=== PATIENT | female | born 1970 | race Caucasian/White ===

== ENCOUNTER 2019-11-29 14:22 | Outpatient (CLI) | payer OTHER, SELFPAY ==
--- NOTE | 2019-11-29 14:29 | MM_ITS ---
WS: [id number] BILATERAL SCREENING DIGITAL MAMMOGRAM WITH CAD HISTORY: SCREENING COMPARISON: 09/08/2018, 07/22/2017 and 2014 Bilateral CC and MLO views submitted. Computer aided detection analyzed. Breast composition: The breasts are heterogeneously dense, which may obscure small masses. No suspici ous masses, microcalcifications or architectural distortion. Stable overall parenchymal pattern. No s uspicious mass or calcifications. MM/[place] [id number] IMPRESSION: BI-RADS: 2-Benign FOLLOW UP: 1 Year Follow-up
== END 2019-11-29 14:23 | disposition home or self-care (01) ==
PROVIDERS: Family Provider Family Medicine; Visit Provider Family Medicine
DX: Z12.31 Encounter for screening mammogram for malignant neoplasm of breast (principal)
CPT/HCPCS: 77067

== ENCOUNTER 2020-12-04 09:15 | Outpatient (CLI) | payer OTHER, SELFPAY ==
--- NOTE | 2020-12-04 09:18 | MM_ITS ---
WS: [id number] SCREENING DIGITAL MAMMOGRAM WITH CAD HISTORY: SCREENING COMPARISON: None available. Bilateral CC and MLO views submitted. Computer aided detection analyzed. Breast composition: The breasts are heterogeneously dense, which may obscure small masses. Partially obscured mass measuring 1 cm in the medial inferior RIGHT breast near 5:00. No suspicious masses or c alcifications otherwise. MM/[place] [id number] IMPRESSION: BI-RADS: 0-Incomplete: Need additional imaging evaluation FOLLOW UP: Need Additional Imaging RIGHT breast: Spot compression views (CC and MLO). True ML. Ultrasound to follo w if abnormality persists.
== END 2020-12-04 09:16 | disposition home or self-care (01) ==
LOC: RADSHAW 09:17
PROVIDERS: PCP Family Medicine; Visit Provider Family Medicine
DX: Z12.31 Encounter for screening mammogram for malignant neoplasm of breast (principal); N63.14 Unspecified lump in the right breast, lower inner quadrant
CPT/HCPCS: 77067

== ENCOUNTER 2020-12-21 10:27 | Outpatient (CLI) | payer OTHER, SELFPAY ==
--- NOTE | 2020-12-21 10:30 | US_ITS ---
WS: [id number] ADDITIONAL VIEWS RIGHT BREAST RIGHT breast ultrasound, limited HISTORY: ABNORMAL/INCONCLUSIVE FINDING ON IMAGING OF BREAST COMPARISON: 12/04/2020, 11/29/2019, 09/08/2018 Compression views right CC and MLO projection. True ML also submitted. Asymmetry persists in the 5:00 axis of the RIGHT breast but is very poorly defined. Asymmetry measure s about 11 mm in the anterior breast. RIGHT breast ultrasound. At 5:00, 2 cm from the nipple is a hypoechoic mass with a few scattered areas of increased foci and t here is also increased vascularity. This corresponds in shape and appearance to the mammographic abno rmality. This nodule measures 0.9 x 1.2 x 0.7 cm. US/US breast RT limited* [id number] IMPRESSION: BI-RADS: 4-Suspicious Finding-Biopsy Should Be Considered FOLLOW-UP: Biopsy Recommended Ultrasound-guided biopsy recommended of the RIGHT breast mass at 5:00.
== END 2020-12-21 10:28 | disposition home or self-care (01) ==
LOC: RADSHAW 10:28
PROVIDERS: PCP Family Medicine; Visit Provider Family Medicine
DX: R92.8 Other abnormal and inconclusive findings on diagnostic imaging of breast (principal); N63.14 Unspecified lump in the right breast, lower inner quadrant
CPT/HCPCS: 76642; 77065

== ENCOUNTER 2021-01-02 12:26 | Outpatient (CLI) | payer OTHER, SELFPAY ==
--- NOTE | 2021-01-02 12:32 | US_ITS ---
WS: [id number] ULTRASOUND-GUIDED RIGHT BREAST BIOPSY CLINICAL INFORMATION: LUMP RIGHT BREAST COMPARISON: None. FINDINGS: The procedure including risks, benefits, and complications were discussed with the patient who agreed to proceed. Using sterile technique patient was prepped and draped in the usual sterile fashion. Aft er 1% lidocaine utilizing real-time ultrasound guidance 5 14-gauge cores were obtained of the right b reast lesion at the 5 o'clock position. Subsequently a titanium clip was placed in the biopsy cavity. No immediate complications. Pathology demonstrates A. Breast, right at 5:00, ultrasound-guided biopsy: -Fibrocystic changes with stromal sclerosis and focal sclerosing adenosis. -Focal fibro-adenomatoid change identified. -No malignancy identified. -Additional ancillary studies have been performed as a precautionary measure and will be added as an addendum. US/[place] [id number] IMPRESSION: 1. Uncomplicated ultrasound-guided right breast biopsy. 2. THE PATHOLOGY DEMONSTRATES A. Breast, right at 5:00, ultrasound-guided biopsy: -Fibrocystic changes with stromal sclerosis and focal sclerosing adenosis. -Focal fibro-adenomatoid change identified. -No malignancy identified. -Additional ancillary studies have been performed as a precautionary measure an d will be added as an addendum. RECOMMEND 6 MONTH FOLLOW-UP RIGHT DIAGNOSTIC MAMMOGRAPHY AND ULTRASOUND. BI-RADS: 2-Benign FOLLOW UP: 6 Month Follow-up
== END 2021-01-02 12:27 | disposition home or self-care (01) ==
PROVIDERS: PCP Family Medicine; Visit Provider Family Medicine
DX: N63.14 Unspecified lump in the right breast, lower inner quadrant (principal); N60.21 Fibroadenosis of right breast
CPT/HCPCS: 19083; 88305

== ENCOUNTER 2022-10-21 13:13 | Outpatient (CLI) | payer OTHER, SELFPAY ==
--- NOTE | 2022-10-21 13:24 | MM_ITS ---
WS: [id number] BILATERAL 3D TOMOSYNTHESIS DIGITAL DIAGNOSTIC MAMMOGRAPHY WITH CAD CLINICAL INFORMATION: 6M F/U HISTORY: Six-month follow-up COMPARISON: 2020 TECHNIQUE: Bilateral CC, MLO, and ML views. FINDINGS: Scattered fibroglandular densities bilaterally. Biopsy clip RIGHT breast. Breast parenchyma appears u nchanged. Ultrasound RIGHT breast is described below. ULTRASOUND BREAST RIGHT TECHNIQUE: Ultrasound right breast focused area of concern. CLINICAL INFORMATION: 6M F/U FINDINGS: Ultrasound RIGHT breast at the 5:00 position 2 cm from the nipple. Again seen is the hypoechoic ovoid nodule today measuring 0.7 0.5 x 1.1 cm stable compared to previous. Recommend return to annual scre ening mammography. Prior biopsy demonstrated fibrocystic changes with stromal sclerosis and focal sclerosing adenosis. F ocal fibroadenomatoid change was identified. No malignancy. MM/[place] [id number] IMPRESSION: BI-RADS: 2-Benign FOLLOW UP: 1 Year Follow-up Recommend return to annual diagnostic mammography.
== END 2022-10-21 13:14 | disposition home or self-care (01) ==
LOC: RAD 13:13
PROVIDERS: PCP Family Medicine; Visit Provider Family Medicine
DX: R92.8 Other abnormal and inconclusive findings on diagnostic imaging of breast (principal)
CPT/HCPCS: 76642; 77062; G0279

== ENCOUNTER 2023-11-20 21:57 | Emergency (ER) | payer OTHER, SELFPAY ==
[2023-11-20 22:03] VITALS: BP 156/91; PULSE 99; RESP 17; TEMP 36.4; O2SAT 98; BMI 30.5
--- NOTE | 2023-11-20 22:28 | CTR_ITS ---
PROCEDURE INFORMATION: Exam: CT Head Without Contrast Exam date and time: 11/20/2023 10:52 PM Age: 53 years old Clinical indication: Injury or trauma; Blunt trauma (contusions or hematomas); Syncope and collapse; Patient HX: Syncope with fall onto concrete. Contusion to RT orbit. ; Additional info: Syncope fall TECHNIQUE: Imaging protocol: Computed tomography of the head without contrast. Radiation optimization: All CT scans at this facility use at least one of these dose optimization techniques: automated exposure control; mA and/or kV adjustment per patient size (includes targeted exams where dose is matched to clinical indication); or iterative reconstruction. REPORTING DATA: Count of CT and Cardiac NM exams in prior 12 months: This patient has received 0 known CTs and 0 known cardiac nuclear medicine studies in the 12 months prior to the current study. COMPARISON: No relevant prior studies available. RADIATION DOSE METRICS: Total DLP (mGy-cm): 1025.18 FINDINGS: Brain: Mild symmetric hyperattenuation/thickening along the anterior cerebellar tentorium bilaterally. No acute territorial region of lindquist-white dedifferentiation. No extra-axial collection. No mass effect or midline shift. Prominent perivascular space or remote lacunar infarct in the left thalamus. Cerebral ventricles: No acute hyrocephalus. Paranasal sinuses: Partially imaged fluid level in the right maxillary sinus. Mastoid air cells: Visualized mastoid air cells are well aerated. Bones/joints: No acute calvarial fracture. Soft tissues: Mild right periorbital soft tissue swelling/contusion. CT/CT head wo con* [id number] IMPRESSION: 1. Mild symmetric hyperattenuation/thickening along the anterior aspect of the cerebellar tentorium bilaterally, favored physiologic, but in the setting of trauma cannot definitively exclude trace subdural blood products. No acute calvarial fracture. 2. Right periorbital soft tissue swelling/contusion.
--- NOTE | 2023-11-20 22:30 | XRR_ITS ---
PROCEDURE INFORMATION: Exam: XR Chest Exam date and time: 11/20/2023 10:47 PM Age: 53 years old Clinical indication: Cough and wheezing; Patient HX: Syncope; Cough; Wheezing TECHNIQUE: Imaging protocol: Radiologic exam of the chest. Views: 2 views. COMPARISON: No relevant prior studies available. FINDINGS: Lungs: No consolidation. Pleural spaces: No pleural effusion. No pneumothorax. Heart/Mediastinum: No cardiomegaly. Bones/joints: No acute fracture. Mrpt-cz-[id number] degenerative changes of the partially imaged spine. XR/XR chest 2V* [id number] IMPRESSION: No acute cardiopulmonary findings.
--- NOTE | 2023-11-20 22:43 | CTR_ITS ---
PROCEDURE INFORMATION: Exam: CT Maxillofacial Without Contrast Exam date and time: 11/20/2023 10:55 PM Age: 53 years old Clinical indication: Injury or trauma; Blunt trauma (contusions or hematomas); Orbit/periorbital; Right; Patient HX: Syncope with fall onto concrete. Contusion to RT orbit. ; Additional info: Facial trauma and tenderness TECHNIQUE: Imaging protocol: Computed tomography of the face without contrast. Radiation optimization: All CT scans at this facility use at least one of these dose optimization techniques: automated exposure control; mA and/or kV adjustment per patient size (includes targeted exams where dose is matched to clinical indication); or iterative reconstruction. REPORTING DATA: Count of CT and Cardiac NM exams in prior 12 months: This patient has received 0 known CTs and 0 known cardiac nuclear medicine studies in the 12 months prior to the current study. COMPARISON: CT head wo con* [id number] 11/20/2023 10:52 PM RADIATION DOSE METRICS: Total DLP (mGy-cm): 578.92 FINDINGS: Orbital cavities: Globes are intact. No intraconal stranding/hemorrhage. See below. Bones/joints: Punctate focus of air along the right infraorbital foramen in the orbital floor with subtle stranding in the right inferolateral orbit extraconal space, suspicious for nondisplaced orbital floor fracture. Paranasal sinuses: Mucosal thickening and fluid level right maxillary sinus. Soft tissues: Right periorbital soft tissue contusion. CT/CT facial bones wo con* [id number] IMPRESSION: 1. Punctate focus of air along the right infraorbital foramen in the right orbital floor with subtle stranding in the right inferolateral orbit extraconal space, suspicious for nondisplaced orbital floor fracture. 2. Right periorbital soft tissue contusion.
--- NOTE | 2023-11-20 22:46 | CTR_ITS ---
PROCEDURE INFORMATION: Exam: CT Cervical Spine Without Contrast Exam date and time: 11/20/2023 10:58 PM Age: 53 years old Clinical indication: Injury or trauma; Blunt trauma; Patient HX: Syncope with fall onto concrete. Contusion to RT orbit. TECHNIQUE: Imaging protocol: Computed tomography of the cervical spine without contrast. Radiation optimization: All CT scans at this facility use at least one of these dose optimization techniques: automated exposure control; mA and/or kV adjustment per patient size (includes targeted exams where dose is matched to clinical indication); or iterative reconstruction. REPORTING DATA: Count of CT and Cardiac NM exams in prior 12 months: This patient has received 0 known CTs and 0 known cardiac nuclear medicine studies in the 12 months prior to the current study. COMPARISON: CT facial bones wo con* [id number] 11/20/2023 10:55 PM RADIATION DOSE METRICS: Total DLP (mGy-cm): 371.77 FINDINGS: Bones/joints: Craniocervical and facet alignment is preserved. Vertebral body heights maintained. No acute fracture. Lungs: Unremarkable. Soft tissues: Unremarkable. CT/CT cervical spin wo con* [id number] IMPRESSION: No acute fracture or traumatic malalignment.
[2023-11-20] MEDS: tetanus-diphtheria tox (adult) 0.5 mL SDV IM (23:19)
--- NOTE | 2023-11-21 00:19 | W.ED.HEATRA ---
HPI - Head Injury General: Chief complaint: Head Injury Stated complaint: choked passed out head injury Time Seen by Provider: 11/20/23 22:09 History of Present Illness: Ann Duncan is a 53-year-old female that presents to the emergency department after a syncopal episode in which she struck her head. Patient states that she aspirated a piece of chocolate and was choking and coughing violently when she lost consciousness and fell. She woke up on a concrete patio. He had pain over the right eye. Patient is not up-to-date on tetanus Patient does not take anticoagulants and antiplatelet therapy. Associated symptoms: Deny confusion, nausea, neck pain or vomiting Review of Systems General: Reports: 10 or more systems reviewed and unremarkable except in HPI and below Const: Denies: fever(s), chills, change in appetite, change in weight, fatigue or malaise Eyes: Reports: eye discomfort and eye redness; Denies: change in vision or eye discharge ENMT: Denies: throat pain, enlarged tonsils, odynophagia, hoarseness, ear or mastoid pain, ear discharge, change in hearing, tinnitus, nasal discharge, nasal congestion, post nasal drip or sinus pain Card: Denies: chest pain, palpitations, irregular heart rhythm, edema, dyspnea on exertion, orthopnea or leg pain with exertion Resp: Denies: dyspnea, productive cough, non-productive cough, wheezing, stridor or chest congestion GI: Denies: abdominal pain, nausea, vomiting, dysphagia, diarrhea, constipation, bloating, GI cramping or hematochezia : Denies: flank pain, difficulty voiding, dysuria, urinary frequency, urinary urgency, urinary hesitancy, oliguria or hematuria Musc: Denies: neck pain, back pain, extremity pain, joint pain, joint swelling, joint redness, joint warmth or muscle weakness Skin/Breast: Denies: rash, pruritus, erythema, photosensitivity or new lesions Neuro: Reports: headache(s); Denies: numbness in extremities, weakness in extremities, sensory changes, lack of coordination, difficulty walking, frequent falls, dizziness, confusion, Slurred speech present, difficulty communicating thoughts, seizure-like activity or involuntary movements Endo: Denies: polyuria, polydipsia or tired all the time Riccardo/Lymph: Denies: easy bruising or easy bleeding Physical Exam Const: COMMON NORMALS: no acute distress, patient oriented x3 and alert GENERAL APPEARANCE: cooperative ORIENTATION/CONSCIOUSNESS: Yes awake, Yes oriented to person, Yes oriented to place and Yes oriented to time HENMT: COMMON NORMALS: normocephalic HEAD & SCALP: normocephalic FACE & SINUS: normal facial exam MOUTH: Normal oral and palatal mucosa present THROAT: posterior oropharynx normal Eye: COMMON NORMALS: Equal, round and reactive pupils present, EOMs intact bilaterally and normal visual quinn by confrontation ALIGNMENT: Yes alignment normal PERIORBITAL: periorbital findings abnormal positive right periorbital swelling, periorbital tenderness, periorbital erythema and periorbital ecchymosis EYELID: eyelid abnormality right upper eyelid laceration (right upper lid) CONJUNCTIVA: Yes conjunctival abnormal positive right subconjunctival hemorrhage PUPIL: Yes Equal, round and reactive pupils present, Yes pupil size - right (3mm) and Yes pupil size - left (3mm) Neck/C-Spine: COMMON NORMALS: full ROM GENERAL: Yes normal visual inspection Lymph: LYMPHATIC: no lymphadenopathy noted Chest: COMMONS NORMALS: normal inspection of the chest Breast/axilla inspection: Yes no chest deformity, asymmetry, normal contours, no nodules, masses, tenderness Resp: COMMON NORMALS: normal respiratory effort, No retractions, No use of accessory muscles and clear to auscultation bilaterally EFFORT & INSPECTION: Yes able to speak in complete sentences and Yes symmetric chest movement AUSCULTATION: clear to auscultation bilaterally Cardio: COMMON NORMALS: regular rate, regular rhythm and Peripheral pulses 2+ throughout RATE: regular rate RHYTHM: regular rhythm PERIPHERAL PULSES: Peripheral pulses 2+ throughout GI: COMMON NORMALS: Normal to inspection, nondistended, normoactive bowel sounds present, Soft to palpation, non-tender and No hepatosplenomegaly present INSPECTION: Yes normal to inspection AUSCULTATION: Yes normoactive bowel sounds PALPATION: Yes Soft to palpation and Yes No hepatosplenomegaly present RECTAL EXAM: deferred Extremity: COMMON NORMALS: normal to inspection GENERAL: Yes normal exam except as noted Neuro: COMMON NORMALS: patient oriented x3 SENSORIUM/ORIENTATION: Yes alert, Yes oriented to person, Yes oriented to place and Yes oriented to time CRANIAL NERVES: Yes CN normal except as noted Psych: COMMON NORMALS: mental status grossly normal, Normal thought process present, cooperative, activity/motor behavior normal, denies homicidal ideation and denies suicidal ideation THOUGHT PROCESS: Normal thought process present Skin: COMMON NORMALS: no rashes or lesions noted, no wounds and turgor normal GENERAL SKIN EXAM: no rashes or lesions noted and turgor normal Course Vital Signs: Vital signs: Vital Signs Temperature 97.6 F 11/20/23 22:03 Pulse Rate 83 11/21/23 00:43 Respiratory Rate 16 11/21/23 00:43 Blood Pressure 145/94 11/21/23 00:43 Pulse Oximetry 95 11/21/23 00:43 Oxygen Delivery Me thod Room Air 11/21/23 00:43 MDM - Head Injury Medcial Decision Making Patient was evaluated in the emergency department following a episode of choking/coughing that resulted in a syncopal episode and fall. Differential diagnosis includes head injury, concussion, ICH, skull fracture, facial fractures, orbital fracture, ruptured globe, Patient underwent a CT head, facial bones, cervical spine and a chest x-ray. The CT head reveals mild symmetric hyperattenuation/thickening along the anterior aspect of the cerebellar tentorium. Radiologist believes this is likely physiologic but in the setting of trauma a subdural cannot be definitively excluded. The CT facial bones revealed punctate focus of air along the right infraorbital foramen and the orbital floor with subtle stranding in the right inferiolateral orbi extraconal space, suspicious for nondisplaced orbital floor fracture. Patient was treated with IV antibiotics here in the emergency department as well as a tetanus. Case discussed with dr Garcia and [facility] contacted for neurosurgery and OMFS consult. Dr Baumann, neurosurgery, has reviewed the CT head and believes that the hyperattenuation or thickening along the tentorium is physiologic and not subdural blood products. Dr. Wilkinson, plastic surgery/oral maxillofacial trauma has reviewed the images and believes patient can be seen outpatient. He recommends ophthalmology follow-up as well. I talked with patient about her follow-up. Case management has been consulted for ophthalmology follow-up Lab Data Radiology Impressions Head CT 11/20/23 22:28 IMPRESSION: 1. Mild symmetric hyperattenuation/thickening along the anterior aspect of the cerebellar tentorium bilaterally, favored physiologic, but in the setting of trauma cannot definitively exclude trace subdural blood products. No acute calvarial fracture. 2. Right periorbital soft tissue swelling/contusion. Chest X-Ray 11/20/23 22:30 IMPRESSION: No acute cardiopulmonary findings. Face CT 11/20/23 22:43 IMPRESSION: 1. Punctate focus of air along the right infraorbital foramen in the right orbital floor with subtle stranding in the right inferolateral orbit extraconal space, suspicious for nondisplaced orbital floor fracture. 2. Right periorbital soft tissue contusion. Cervical Spine CT 11/20/23 22:46 IMPRESSION: No acute fracture or traumatic malalignment. All radiology interpretation(s) finalized by discharge Discharge Plan Discharge Patient Disposition: Home Clinical Impression: Closed head injury, Fracture of orbital floor, Laceration, MELISSA (subconjunctival hemorrhage) Condition: Stable Prescriptions: New cephalexin 500 mg capsule 500 mg PO Q6H 7 Days Qty: 28 0RF Discharge Orders: Discharge ED (Routine); Ordered 11/21/23 Ordered By: Dinah Pantoja Referrals: Christina Mercedes MD [Primary Care Provider] - Discharge Diet: Advance as tolerated Discharge Activity: Resume usual activity Patient Instructions: Subconjunctival Hemorrhage, Facial Fracture (ED), Concussion (ED), Pain Management Activity Restrictions/Additional Instructions: I have asked the egg caser here to set up ophthalmology follow-up. Please follow-up with your learning engineer as well. Neurosurgery, Dr. Baumann reviewed your CT imaging of your head and does not believe you have a subdural. If you develop headache, confusion, vomiting, you need to be reevaluated Dr Wilkinson is the plastic surgeon/facial surgeon who I spoke with about your orbital floor fracture. He will see you outpatient. He can be reached at [phone]. His address is [address] [place] [address] in [place] If your vision changes, becomes blurry, or you develop any other symptoms that are worrisome then return to the emergency department immediately. Coding Level of Care Code ED Network Support Administrator for Steven Dueñas
[2023-11-21 00:43] VITALS: BP 145/94; PULSE 83; RESP 16; O2SAT 95
[2023-11-21] MEDS: cephALEXin 500 mg Capsule PO (02:04)
--- NOTE | 2023-11-21 02:06 | PC.NURSE ---
the area was cleansed above the pts right eye.
--- NOTE | 2023-11-24 10:34 | DCPLANNER ---
Referral was faxed to Dr. Courtney office on 11/24/23 at 1015am. Clinic to contact patient. Fax number: [phone]. Phone number: [phone]
== END 2023-11-21 02:12 | disposition home or self-care (01) ==
PROVIDERS: Emergency Provider Nurse Practitioner; PCP Family Medicine
DX: S09.8XXA Other specified injuries of head, initial encounter (principal); S02.31XA Fracture of orbital floor, right side, initial encounter for closed fracture; H11.30 Conjunctival hemorrhage, unspecified eye; W18.39XA Other fall on same level, initial encounter
CPT/HCPCS: 70450; 70486; 71046; 72125; 90714; 99284

== ENCOUNTER 2023-11-27 13:57 | Outpatient (CLI) | payer OTHER, SELFPAY ==
--- NOTE | 2023-11-27 14:02 | MM_ITS ---
WS: [id number] BILATERAL 3D TOMOSYNTHESIS DIGITAL SCREENING MAMMOGRAPHY WITH CAD CLINICAL INFORMATION: SCREENING HISTORY: Screening mammogram. No current complaints. COMPARISON: 2021 TECHNIQUE: Bilateral CC and MLO views. FINDINGS: Scattered fibroglandular densities bilaterally. No suspicious focal mass, asymmetry, calcifications, or architectural distortion. No evidence of malignancy. Biopsy clip RIGHT breast. A few incidental pu nctate calcifications. IMPRESSION: MM/[place] [id number] BI-RADS: 2-Benign FOLLOW UP: 1 Year Follow-up Recommend return to annual screening mammography.
== END 2023-11-27 13:58 | disposition home or self-care (01) ==
LOC: RAD 13:57
PROVIDERS: PCP Family Medicine; Visit Provider Family Medicine
DX: Z12.31 Encounter for screening mammogram for malignant neoplasm of breast (principal)
CPT/HCPCS: 77063; 77067

== ENCOUNTER 2024-12-12 09:27 | Outpatient (CLI) | payer OTHER, SELFPAY ==
--- NOTE | 2024-12-12 09:28 | MM_ITS ---
WS: [id number] BILATERAL SCREENING DIGITAL TOMOSYNTHESIS MAMMOGRAM WITH CAD HISTORY: SCREENING COMPARISON: 11/27/2023, 10/21/2022 Bilateral CC and MLO views with tomosynthesis and synthetic mammography submitted. Computer aided det ection analyzed. Breast composition: There are scattered areas of fibroglandular density. No suspicious masses, microc alcifications or architectural distortion. Scattered benign calcifications throughout each breast. MM/MM scr BI tomosynthesis [id number] IMPRESSION: BI-RADS: 2 - Benign. FOLLOW UP: 1 Year Follow-up
== END 2024-12-12 09:28 | disposition home or self-care (01) ==
LOC: RAD 09:28
PROVIDERS: PCP Family Medicine; Visit Provider Family Medicine
DX: Z12.31 Encounter for screening mammogram for malignant neoplasm of breast (principal); R92.323 Mammographic fibroglandular density, bilateral breasts; R92.1 Mammographic calcification found on diagnostic imaging of breast
CPT/HCPCS: 77063; 77067

== ENCOUNTER 2025-01-16 14:17 | Outpatient (CLI) | payer OTHER, SELFPAY ==
[2025-01-16 15:08] LABS: Alanine Aminotransferase 19 U/L (0-33); Albumin Level 4.3 g/dL (3.5-5.2); Alkaline Phosphatase 113 U/L (35-105); Anion Gap 14.2 (5-19); Aspartate Amino Transferase 19 U/L (0-32); Blood Urea Nitrogen 11 mg/dL (6-20); Calcium 9.2 mg/dL (8.5-10.5); Carbon Dioxide 28 mmol/L (22-29); Chloride 102 mmol/L (98-107); Globulin 2.5 g/dL (1.3-4.6); Glomerular Filtration Rate 74.7 mL/min (90-130); Glucose 101 mg/dL (65-115); Osmolality Calculated 290 mOsm/kg (285-295); Potassium 4.2 mmol/L (3.5-5.1); Sodium 140 mmol/L (136-145); Total Bilirubin 0.2 mg/dL (0.15-1.2); Total Protein 6.8 g/dL (6.6-8.7)
== END 2025-01-16 14:18 | disposition home or self-care (01) ==
PROVIDERS: PCP Family Medicine; Visit Provider Podiatrist Foot & Ankle Surgery
DX: B35.1 Tinea unguium (principal)
CPT/HCPCS: 36415; 80053

== ENCOUNTER 2025-04-12 11:13 | Outpatient (CLI) | payer OTHER, SELFPAY ==
[2025-04-12 12:11] LABS: Alanine Aminotransferase 19 U/L (0-33); Albumin Level 4.1 g/dL (3.5-5.2); Alkaline Phosphatase 103 U/L (35-105); Anion Gap 17.5 (5-19); Aspartate Amino Transferase 25 U/L (0-32); Blood Urea Nitrogen 12 mg/dL (6-20); Calcium 9.3 mg/dL (8.5-10.5); Carbon Dioxide 25 mmol/L (22-29); Chloride 104 mmol/L (98-107); Globulin 2.7 g/dL (1.3-4.6); Glomerular Filtration Rate 74.7 mL/min (90-130); Glucose 101 mg/dL (65-115); Osmolality Calculated 294 mOsm/kg (285-295); Potassium 4.5 mmol/L (3.5-5.1); Sodium 142 mmol/L (136-145); Total Bilirubin 0.2 mg/dL (0.15-1.2); Total Protein 6.8 g/dL (6.6-8.7)
== END 2025-04-12 11:14 | disposition home or self-care (01) ==
PROVIDERS: PCP Family Medicine; Visit Provider Podiatrist Foot & Ankle Surgery
DX: B35.1 Tinea unguium (principal)
CPT/HCPCS: 36415; 80053